=== PATIENT | male | born 1990 | race Caucasian/White ===

== ENCOUNTER → 2017-07-17 | Outpatient (CLI) | payer MEDICAID | LOC: BMCIMAGING 14:47 | PROVIDERS: ATTEND Internal Medicine | DX: M41.86 Other forms of scoliosis, lumbar region (principal) ==

== ENCOUNTER → 2018-01-11 | Outpatient (CLI) | payer MEDICAID, OTHER | LOC: BMCIMAGING 17:28 | PROVIDERS: ATTEND Family Medicine | DX: S62.396A Other fracture of fifth metacarpal bone, right hand, initial encounter for closed fracture (principal) ==

== ENCOUNTER → 2018-11-01 | Outpatient (CLI) | payer OTHER | LOC: FIMAGING 09:20 ==